=== PATIENT | female | born 1990 | race Hispanic/Latino ===

== ENCOUNTER 2018-03-31 04:59 | Emergency (ER) | payer BC ==
[2018-03-31 05:15] VITALS: BP 119/78; PULSE 83; RESP 16; TEMP 98.4; O2SAT 99
[2018-03-31] MEDS ORDERED: Silver Sulfadiazine 1% CREAM (50 gm) TOP STA (05:32)
--- NOTE | 2018-03-31 05:35 | ED PDOC ---
Burn Injury/Smoke Inhalation Time Seen by Provider: 03/31/18 05:24 Chief Complaint (Nursing): Burn Chief Complaint (Provider): left leg burn History Per: Patient History/Exam Limitations: no limitations Injury Occurred (Timing): Just Before Arrival Type Of Burn (Context): Hot Liquid Front/Back of Body, Lg (Color): 1 - erythema, blistering Additional Complaint(s): 28 y/o female presents for evaluation of burn to left thigh, sustained prior to arrival. Patient states she was making coffee and hot water spilled on to her leg. Patient cleaned area and applied aloe gel. Denies numbness/weakness left lower extremity, limitation of movement. Tetanus up to date. Past Medical History Reviewed: Historical Data, Nursing Documentation, Vital Signs Vital Signs: Last Vital Signs Temp 98.4 F 03/31/18 05:11 Pulse 83 03/31/18 05:11 Resp 16 03/31/18 05:11 BP 119/78 03/31/18 05:11 Pulse Ox 99 03/31/18 05:11 - Medical History PMH: Asthma Denies: Chronic Kidney Disease - Surgical History Surgical History: No Surg Hx - Family History Family History: States: No Known Family Hx - Home Medications Home Medications: Ambulatory Orders Medication Instructions Recorded Fluticasone Propionate [Flonase] 4 spr IN DAILY #1 bottle 03/08/16 Fluticasone/Salmeterol 250/50 1 puff IH Q12H #1 unit 03/08/16 [Advair Diskus] Guaifenesin/Pseudoephedrne HCl 1 ter PO Q12H PRN #10 ter 03/08/16 [Mucinex D 600 mg-60 mg] predniSONE [predniSONE Tab] 40 mg PO DAILY #10 tab 03/08/16 Ibuprofen [Motrin Tab] 1 tab PO Q6 PRN #20 tab 03/31/18 Silver Sulfadiazine 1% 50 gm 1 applic TOP BID #1 jar 03/31/18 [Silvadene 1% 50 gm] traMADol [Ultram] 50 mg PO Q8 PRN #12 tab 03/31/18 - Allergies Allergies/Adverse Reactions: Allergies Allergy/AdvReac Type Severity Reaction Status Date / Time No Known Allergies Allergy Verified 03/08/16 06:57 Review of Systems ROS Statement: Except As Marked, All Systems Reviewed And Found Negative Musculoskeletal: Positive for: Leg Pain (left thigh burn) Physical Exam - Reviewed Nursing Documentation Reviewed: Yes Vital Signs Reviewed: Yes - Physical Exam Appears: Positive for: Well, Non-toxic, No Acute Distress Head Exam: Positive for: ATRAUMATIC, NORMAL INSPECTION, NORMOCEPHALIC Skin: Positive for: Rash ([id number] area of erythema with blistering noted anterior/lateral left thigh. FROM LLE. Distal NV/motor intact) Extremity: Positive for: Normal ROM - ECG O2 Sat by Pulse Oximetry: 99 - Progress ED Course And Treament: ibuprofen PO Area cleaned with normal saline, Silvadene applied, bandage applied Patient educated on findings, discharged with rx Tramadol, Silvadene Advised follow up within 2-3 days Return precautions given Disposition - Clinical Impression Clinical Impression: Burn of left leg - Patient ED Disposition Is Patient to be Admitted: No Counseled Patient/Family Regarding: Diagnosis, Need For Followup, Rx Given - Disposition Disposition: Routine/Home Disposition Time: 05:39 Condition: STABLE Prescriptions: Ibuprofen [Motrin Tab] 1 tab PO Q6 PRN #20 tab PRN Reason: Pain, Moderate (4-7) Silver Sulfadiazine 1% 50 gm [Silvadene 1% 50 gm] 1 applic TOP BID #1 jar traMADol [Ultram] 50 mg PO Q8 PRN #12 tab PRN Reason: Pain, Severe (8-10) Instructions: Skin Anaya
[2018-03-31] MEDS ORDERED: Silver Sulfadiazine 1% CREAM (50 gm) ONE (05:53)
== END 2018-03-31 06:14 | disposition home or self-care (01) ==
LOC: H.ER 04:59
DX: T24.032A Burn of unspecified degree of left lower leg, initial encounter (principal); X11.8XXA Contact with other hot tap-water, initial encounter; Y92.89 Other specified places as the place of occurrence of the external cause